=== PATIENT | female | born 2000 | race Caucasian/White ===

== ENCOUNTER 2018-04-29 15:53 | Emergency (ER) | payer OTHER ==
[~2018-04-29] VITALS: Ht 160 cm; Wt 70.3 kg
[~2018-04-29 15:53] MED LIST: AMOXICILLIN500 MG; GILTUSS LIQUID237 M1
[2018-04-29] MEDS ORDERED: ZOLOFT50 MG (16:35)
== END 2018-04-29 18:33 | disposition home or self-care (01) ==
LOC: ER 15:53
DX: K64.8 Other hemorrhoids (principal)

== ENCOUNTER 2019-04-21 12:15 | Emergency (ER) | payer OTHER ==
[~2019-04-21] VITALS: Ht 160 cm; Wt 72.6 kg
[~2019-04-21 12:15] MED LIST changes: +ZOLOFT50 MG
== END 2019-04-21 19:36 | disposition home or self-care (01) ==
LOC: ER 12:15
DX: J06.9 Acute upper respiratory infection, unspecified (principal); E86.0 Dehydration; R09.81 Nasal congestion; R05 Cough

== ENCOUNTER 2020-10-22 19:51 | Emergency (ER) | payer OTHER ==
[~2020-10-22] VITALS: Ht 160 cm; Wt 86.2 kg
[2020-10-22] MEDS ORDERED: AMBIEN10 MG PO (20:12)
[2020-10-22] MEDS ORDERED: WELLBUTRIN XL300 MG PO (20:12)
[2020-10-22] MEDS ORDERED: BUPROPION XL300 MG PO (20:13)
== END 2020-10-22 22:51 | disposition home or self-care (01) ==
LOC: ER 19:51
DX: R10.31 Right lower quadrant pain (principal)

== ENCOUNTER 2020-12-04 18:30 | Emergency (ER) | payer OTHER ==
[~2020-12-04] VITALS: Ht 160 cm; Wt 86.2 kg
[~2020-12-04 18:30] MED LIST changes: +AMBIEN10 MG PO; +BUPROPION XL300 MG PO; +WELLBUTRIN XL300 MG PO
[2020-12-04] MEDS ORDERED: ATARAX25 MG (18:46)
== END 2020-12-04 22:57 | disposition home or self-care (01) ==
LOC: ER 18:30
DX: R20.0 Anesthesia of skin (principal)

== ENCOUNTER 2021-02-18 16:47 | Emergency (ER) | payer OTHER ==
[~2021-02-18] VITALS: Ht 160 cm; Wt 85.7 kg
[~2021-02-18 16:47] MED LIST changes: +ATARAX25 MG
[2021-02-18] MEDS ORDERED: IPRAT-ALBUT 0.5-3 ML IH (23:34)
== END 2021-02-19 00:05 | disposition home or self-care (01) ==
LOC: ER 16:47
DX: J45.998 Other asthma (principal); R05 Cough; Z11.52 Encounter for screening for COVID-19